=== PATIENT | female | born 1975 | race Caucasian/White ===

== ENCOUNTER 2022-10-25 10:43 | Emergency (ER) | payer OTHER ==
[~2022-10-25] VITALS: Ht 170.2 cm; Wt 133.6 kg
[~2022-10-25 10:43] MED LIST: AMBIEN 10MG10 MG PO; AMITRIPTYLINE H10 M1 PO; AMITRIPTYLINE H25 M1 PO; AMITRIPTYLINE H50 M1 PO; AMOXICILLIN 50500 MG PO; AMRIX15 MG PO; AMRIX30 MG PO; ATARAX 25MG25 MG/TAB PO; BENADRYL25 M2 PO; CYMBALTA 20MG20 MG PO; D3-5050000 IU PO; DESYREL 50MG50 MG PO; DESYREL DIVIDO300 MG PO; DOXYCYCLINE 10100 MG PO; ELAVIL50 MG PO; FLEXERIL10 MG PO; FLOVENT 110MCG7.9 GM IH; HCTZ 25MG TAB25 MG PO; HCTZ 25MG25 MG PO; HORIZANT600 MG PO; LEVAQUIN 750MG750 M1 PO; LUNESTA 1MG TAB1 MG PO; LYRICA 100MG C100 M1 PO; LYRICA 75MG CAP75 MG PO; MACROBID 1100 MG/CAP PO; MAXALT10 MG PO; MINIPRESS2 MG; MULTIPLE VITAMI1 CAP PO; NAPROSYN 2250 MG/TAB PO; NAPROSYN500 MG PO; NORCO 325 MG-51 TAB PO; NORCO 325 MG-7.1 TAB PO; PAXIL 20MG20 MG PO; PEN-VEE K500 MG PO; PEPCID 20MG TAB20 MG PO; PERCOCET 325 MG1 TA2 PO; PERCOCET 5/321 UDTAB PO; PERCOCET 650 MG1 TAB PO; PHENERGAN 25 TA25 MG PO; PREDNISONE 5MG5 MG; PREDNISONE20 MG PO; PRIL40 PO; PRINIVIL10 MG PO; PRINIVIL2.5 MG PO; PROTONIX 40MG T40 MG PO; RT ADVAIR 228 DISKUS IH; SYNTHROID0.025 MG PO; SYNTHROID0.125 MG/T PO; TAMIFLU 75MG75 MG PO; TESSALON P100 MG/CAP PO; TESSALON PERLE200 MG PO; TOPAMAX 100MG100 MG PO; TYLENOL 325MG325 MG PO; TYLENOL 8 HR PO; TYLENOL ARTHRI650 M1 PO; ULTRAM 50MG TAB50 MG PO; ULTRAM50 MG PO; VALIUM 2MG T2 MG/TAB PO; VIMOVO 20 MG-501 TCP PO; VITAMIN B COMPL1 T16 PO; VITAMIN B11000 MCG/M IM; WELLBUTRIN PO; WELLBUTRIN XL150 MG PO; ZESTRIL 10MG10 MG PO; ZITHROMAX 250M250 MG PO; ZOFRAN 4MG T4 MG/TAB PO; ZOFRAN ODT4 MG PO; ZOFRAN8 MG PO; ZYRTEC 10MG10 MG PO
[2022-10-25 10:48] VITALS: TEMP 98
[2022-10-25 13:22] VITALS: BP 111/72; PULSE 79
== END 2022-10-25 13:23 | disposition home or self-care (01) ==
LOC: COL.ER 10:43
DX: R51.9 Headache, unspecified (principal); Z86.69 Personal history of other diseases of the nervous system and sense organs
CPT/HCPCS: J1200; J1885; J2765; J7030

== ENCOUNTER 2024-02-24 16:26 | Emergency (ER) | payer OTHER ==
[~2024-02-24] VITALS: Ht 170.2 cm; Wt 95.5 kg
[2024-02-24 16:29] VITALS: TEMP 97.5
[2024-02-24] MEDS ORDERED: Ketorolac 30 MG/ML VIAL IV ONE (17:00)
[2024-02-24] MEDS ORDERED: fentaNYL 50 MCG/ML 2 ML VIAL IV ONE (17:00)
[2024-02-24 18:55] VITALS: BP 108/66; PULSE 82
== END 2024-02-24 18:55 | disposition home or self-care (01) ==
LOC: COL.ER 16:26
DX: S70.02XA Contusion of left hip, initial encounter (principal); S20.212A Contusion of left front wall of thorax, initial encounter; W18.2XXA Fall in (into) shower or empty bathtub, initial encounter; Y93.E1 Activity, personal bathing and showering
CPT/HCPCS: J1885; J3010

== ENCOUNTER 2024-02-28 17:10 | Emergency (ER) | payer OTHER ==
[~2024-02-28] VITALS: Ht 170.2 cm; Wt 95.5 kg
[2024-02-28 17:22] VITALS: TEMP 98.1
[2024-02-28] MEDS ORDERED: FLEXERIL 1010 MG/TAB PO (19:47)
[2024-02-28] MEDS ORDERED: Home Cyclobenzaprine 10 MG #2 TABS/PACK PO ONE (20:00)
[2024-02-28 20:10] VITALS: BP 132/78; PULSE 80
== END 2024-02-28 20:10 | disposition home or self-care (01) ==
LOC: COL.ER 17:10
DX: M54.50 Low back pain, unspecified (principal); W19.XXXA Unspecified fall, initial encounter